=== PATIENT | female | born 1995 | race Caucasian/White ===

== ENCOUNTER 2020-08-23 17:56 | Emergency (ER) | payer BC, OTHER ==
[~2020-08-23 17:56] MED LIST: PRENATAL VITAM1 EAC5 PO
[2020-08-23] MEDS ORDERED: SILVADENE CREAM20 GM TOP (19:15)
== END 2020-08-23 19:30 | disposition home or self-care (01) ==
LOC: ER1 17:56
DX: T23.222A Burn of second degree of single left finger (nail) except thumb, initial encounter (principal); X08.8XXA Exposure to other specified smoke, fire and flames, initial encounter; Z88.2 Allergy status to sulfonamides; Y92.009 Unspecified place in unspecified non-institutional (private) residence as the place of occurrence of the external cause
CPT/HCPCS: 16020; 99283